=== PATIENT | female | born 1960 | race Caucasian/White ===

== ENCOUNTER 2018-03-21 06:02 | Day surgery (SDC) | payer OTHER ==
[2018-03-21] MEDS ORDERED: FENTAnyl 50 MCG/ML VIAL (08:28)
[2018-03-21] MEDS ORDERED: MIDAZOLAM 1 MG/ML 2 ML INJ ×2 (08:28)
== END 2018-03-21 12:32 | disposition home or self-care (01) ==
LOC: GIL 06:02
DX: Z12.11 Encounter for screening for malignant neoplasm of colon (principal); D12.5 Benign neoplasm of sigmoid colon; K29.50 Unspecified chronic gastritis without bleeding; K64.8 Other hemorrhoids; K64.4 Residual hemorrhoidal skin tags; K21.9 Gastro-esophageal reflux disease without esophagitis
CPT/HCPCS: 43239; 84703; 88305; 88312